=== PATIENT | male | born 2000 | race Two or more races ===

== ENCOUNTER 2024-12-18 21:17 | Emergency (ER) | payer OTHER ==
[~2024-12-18] VITALS: Ht 190.5 cm; Wt 90.7 kg
[2024-12-18] MEDS ORDERED: KETOROLAC TROMETHAMINE 30 MG VIAL IM STA (23:22)
[2024-12-18] MEDS ORDERED: ORPHENADRINE CITRATE 30 MG/ML AMPUL IM STA (23:23)
[2024-12-18] MEDS ORDERED: KETOROLAC TROMETHAMINE 30 MG VIAL ONE (23:26)
[2024-12-18] MEDS ORDERED: ORPHENADRINE CITRATE 30 MG/ML AMPUL ONE (23:26)
[2024-12-18 23:58] LABS: BASO % 0.5 % (0.1-1.2); EOS # 0.08 (0.04-0.54); EOS % 1.1 % (0.7-7.0); LYMPH # 1.82 (1.18-3.74); LYMPH % 24.4 % (19.3-53.1); MEAN PLATELET VOLUME 10.30 fl (9.4-12.4); MONO # 0.58 (0.24-0.82); MONO % 7.8 % (4.7-12.5); NEUT # 4.93 (1.56-6.13); NEUT % 65.9 % (34.0-71.1); RED CELL DISTRIBUTION WIDTH 12.2 % (11.6-14.4)
[2024-12-19 00:22] LABS: ALT/SGPT 23.0 U/L (12-78); AST/SGOT 9.0 U/L (15-37); BILIRUBIN TOTAL 1.2 mg/dL (0.3-1.2); BUN CREA RATIO 14.0 (7.0-25.0); CREATININE SERUM 1.38 mg/dL (0.70-1.30); GFR 64.43; GLOBULINA 3.9 G/DL (2.4-3.5); GLUCOSE FASTING 98.0 mg/dL (65-100); OSMOLALITY SERUM 286.0 MOSM/KG (275-295)
== END 2024-12-19 01:22 | disposition home or self-care (01) ==
LOC: ER 21:17
PROVIDERS: General Practice
DX: M43.6 Torticollis (principal)

== ENCOUNTER 2024-12-20 14:53 | Emergency (ER) | payer OTHER ==
[~2024-12-20] VITALS: Ht 190.5 cm; Wt 90.7 kg
== END 2024-12-20 18:29 | disposition home or self-care (01) ==
LOC: ER 14:57
DX: J32.9 Chronic sinusitis, unspecified (principal); R42 Dizziness and giddiness